=== PATIENT | female | born 2005 | race African-American/Black ===

== ENCOUNTER 2024-06-27 23:18 | Emergency (ER) | payer OTHER ==
[~2024-06-27] VITALS: Ht 157.5 cm; Wt 92.0 kg
--- NOTE | 2024-06-28 00:01 | ED.PDOC ---
ORE CRUSHER HPI Comments 18-year-old female with history of current approximate 20 week brought in by family complaining of vaginal bleeding intermittently for the last 2 days. Patient states 2 days ago she had unprovoked onset of mild vaginal bleeding, going through 2 pads that day, and also passing a small blood clot. She currently states she is having only vaginal spotting. She did have some pelvic discomfort yesterday, but denies any pain now. She denies any fever, nausea, vomiting, abnormal fluid discharge or dysuria. She states she did have an ultrasound about a week ago that showed an intrauterine . Chief Complaint: Vaginal Bleed Time Seen by MD: 23:25 Reviewed Notes: Nurses Notes, Medications, Allergies Allergies: Coded Allergies: NO KNOWN ALLERGIES (Unverified , 06/27/24) Home Meds Active Scripts Cephalexin Monohydrate (Cephalexin) 500 Mg Cap, 1 CAP PO QID for 10 Days, #40 CAP Prov:SAMUEL COSTA MD 06/28/24 Information Source: Patient Past Medical History PAST MEDICAL HISTORY: Anemia, Asthma Surgical History: Denies all surgeries 2 Para 1 AB 0 Family History Family History: Reviewed,noncontributory to illness Social History Smoker: Non-Smoker Alcohol: Denies ETOH Use Drugs: Denies Drug Use Lives In: Home All Other Systems: Reviewed and Negative (Comprehensive systems review obtained and negative except for what is stated in the HPI.) Physical Exam General Appearance: No Apparent Distress, Obese HEENT: Normal ENT Inspection Neck: Full Range of Motion, Normal Inspection Respiratory: Lungs Clear, No Accessory Muscle Use, No Respiratory Distress, Normal Breath Sounds Cardiovascular: No Edema, No JVD, Regular Rate/Rhythm Breast Exam: Deferred Gastrointestinal: Non Tender, Soft Genitalia: Deferred Pelvic: Deferred Rectal: Deferred Extremities: Normal inspection, Normal range of motion, Non-tender, No pedal edema Neurologic: Alert, No Motor Deficits, Normal Affect, Normal Mood, No Sensory Deficits Cerebellar Function: NOT DONE Reflexes: NOT DONE Skin: Dry, Normal Color, Warm Lymphatic: NOT DONE Was a procedure done? Was a procedure done?: No Differential Diagnosis ([employer]) Vaginal Bleeding: - Incomplete, - Inevitable, - Missed, Abruptio Placentae, Blood Loss Anemia, Myomatous Uterus, Placenta Previa, UTI X-Ray, Labs, Meds, VS Vital Signs Date Time Temp Pulse Resp B/P (MAP) Pulse Ox O2 Delivery O2 Flow Rate FiO2 06/27/24 23:27 98.8 85 16 122/43 (69) 98 Lab Test 06/27/24 23:59 06/27/24 23:42 Range/Units White Blood Count 6.3 4.4-10.8 10^3/uL Red Blood Count 3.83 L 4.0-5.20 10^6/uL Hemoglobin 9.7 L 12.2-16.2 g/dL Hematocrit 29.6 L 36.0-46.0 % Mean Corpuscular Volume 77.5 L 80.0-100.0 fL Mean Corpuscular Hemoglobin 25.4 L 28.0-32.0 pg Mean Corpuscular Hemoglobin Concent 32.8 32.0-36.0 g/dL Red Cell Distribution Width 14.7 H 11.8-14.3 % Platelet Count 303 140-450 10^3/uL Mean Platelet Volume 7.1 6.9-10.8 fL Neutrophils (%) (Auto) 50.3 37.0-80.0 % Lymphocytes (%) (Auto) 34.4 10.0-50.0 % Monocytes (%) (Auto) 9.1 0.0-12.0 % Eosinophils (%) (Auto) 5.8 0.0-7.0 % Basophils (%) (Auto) 0.4 0.0-2.0 % Neutrophils # (Auto) 3.2 1.6-8.6 10 ^3/uL Lymphocytes # (Auto) 2.2 0.4-5.4 10 ^3/uL Monocytes # (Auto) 0.6 0-1.3 10 ^3/uL Eosinophils # (Auto) 0.4 0-0.8 10 ^3/uL Basophils # (Auto) 0 0-0.2 10 ^3/uL Nucleated Red Blood Cells 0.0 % Prothrombin Time 10.5 9.3-11.8 sec Prothrombin Time INR 0.99 0.9-1.15 Activated Partial Thromboplast Time 23.7 L 24.5-34.5 SEC Sodium Level 138 136-145 mmol/L Potassium Level 4.3 3.5-5.1 mmol/L Chloride Level 107 98-107 mmol/L Carbon Dioxide Level 24 20-31 mmol/L Anion Gap 7 5-15 Blood Urea Nitrogen 6 L 9-23 mg/dL Creatinine 0.66 0.550-1.02 mg/dL Glomerular Filtration Rate Calc 129 >90 mL/min BUN/Creatinine Ratio 9.1 L 10.0-20.0 Serum Glucose 88 74-106 mg/dL Calcium Level 9.2 8.7-10.4 mg/dL Beta HCG, Quantitative 77546.7 H 1.5-4.2 mIU/mL Urine Color Yellow Yellow Urine Clarity Turbid H Clear Urine pH 7.0 5.0-9.0 Urine Specific [place] 1.026 1.001-1.035 Urine Protein Trace H Negative Urine Ketones Negative Negative Urine Blood Negative Negative /uL Urine Nitrite Negative Negative Urine Bilirubin Negative Negative Urine Urobilinogen 2 H Negative mg/dL Urine Leukocyte Esterase 1+ Negative /uL Urine RBC 3 0 - 4 /hpf Urine WBC 10 0 - 5 /hpf Urine Squamous Epithelial Cells Mod <5 /hpf Urine Bacteria Few H None Seen /hpf Urine Mucus Few None Seen Urine Glucose Normal Normal mg/dL [place] [address] Ph: [phone] DIAGNOSTIC IMAGING Diagnostic Imaging Report : [id number] Signed PATIENT: CASIE ROSE RACCT: [id number] UNIT: [id number] : 2005 LOC: ER ROOM / BED: / AGE / SEX: 18 / F ADM STATUS: REG ER SERVICE 2330 ORDERING PHYSICIAN: SAMUEL COSTA MD PROCEDURE(s): OBUS - OB ULTRASOUND COMP GTR 14 WKS REASON: vag bleed ORDER NUMBER(s): [id number], ACCESSION NUMBER(s): [id number] LIMITED OB ULTRASOUND > 14 WKS: HISTORY: vag bleed TECHNIQUE: Multiple real-time grayscale images of the gravid uterus with duplex Doppler color flow and M-mode spectral analysis. FINDINGS: IUP single live fetus at 20 weeks 3 days based on composite averages of the BPD, head circumference, abdominal circumference and femur length Estimated weight 338 grams heart rate 166 beats per minute VANESSA is adequate. presentation is breech. Placenta is posterior. Cervix measures 5 cm and appears closed. IMPRESSION: IUP single live fetus at 20 weeks 3 days AUA corresponding to an ROSALEE of November 10, 2024 ATED BY: TOPHER RODRIGUEZ DO DICTATED DATE/TIME: 06/28/24 0131 X-Ray, Labs, Meds, VS Comment 18-year-old female with current approximate 20 week complaining of vaginal bleeding Vitals remarkable for BP 122/43 Exam unremarkable Rhythm strip independently interpreted by me: Sinus rhythm, rate 85, no ectopy. Ob ultrasound unremarkable CBC remarkable for hemoglobin 9.7, hematocrit 29.6, basic metabolic panel unremarkable for any abnormality of acute significance, coagulation panel remarkable for PTT 23.7, serum quantitative hCG 98171.7 UA abnormal showing protein, leukocyte esterase, 10 WBCs and few bacteria Patient treated with the following in the ED: Rocephin 1 g IM On re-evaluation, patient denied any heavy vaginal bleeding, denied any abdominal /pelvic pain, and abdominal exam was benign. Vitals were unremarkable. Patient was advised regarding workup findings, my impression, treatment plan and follow-up recommendations. She expressed understanding and agreed. Patient appears stable for outpatient follow-up with her OBGYN Rx Keflex Time of 1ST Reevaluation: 01:03 Reevaluation 1ST: Unchanged Patient Education/Counseling: Diagnosis, Treatment, Need For Follow Up Family Education/Counseling: No Family Present Departure 1 Departure Time of Disposition: 01:38 Impression: Primary Impression: Vaginal bleeding during Additional Impression: UTI (urinary tract infection) Qualified Codes: N39.0 - Urinary tract infection, site not specified Disposition: HOME / SELF CARE / HOMELESS Condition: Stable Additional Instructions: Your ultrasound results are normal and are below. Your lab tests showed mild anemia which does not require any acute treatment at this time. Continue taking your iron supplements as directed. Your urine test showed a urinary tract infection. I have prescribed antibiotics. Follow-up with your OBGYN in 1-2 days. Return to ER for persistent or worsening symptoms. [place] [address] Ph: [phone] DIAGNOSTIC IMAGING Diagnostic Imaging Report : [id number] Signed PATIENT: CASIE ROSE ACCT: [id number] UNIT: [id number] : 2005 LOC: ER ROOM / BED: / AGE / SEX: 18 / F ADM STATUS: REG ER SERVICE 2330 ORDERING PHYSICIAN: SAMUEL COSTA MD PROCEDURE(s): OBUS - OB ULTRASOUND COMP GTR 14 WKS REASON: vag bleed ORDER NUMBER(s): [id number], ACCESSION NUMBER(s): [id number] LIMITED OB ULTRASOUND > 14 WKS: HISTORY: vag bleed TECHNIQUE: Multiple real-time grayscale images of the gravid uterus with duplex Doppler color flow and M-mode spectral analysis. FINDINGS: IUP single live fetus at 20 weeks 3 days based on composite averages of the BPD, head circumference, abdominal circumference and femur length Estimated weight 338 grams heart rate 166 beats per minute VANESSA is adequate. presentation is breech. Placenta is posterior. Cervix measures 5 cm and appears closed. IMPRESSION: IUP single live fetus at 20 weeks 3 days AUA corresponding to an ROSALEE of November 10, 2024 ATED BY: TOPHER RODRIGUEZ DO DICTATED DATE/TIME: 06/28/24 0131 e-Prescriptions Cephalexin Monohydrate (Cephalexin) 500 Mg Cap 1 CAP PO QID for 10 Days, #40 CAP Prov: SAMUEL COSTA MD 06/28/24 Discharged With: Self Critical Care Note Critical Care Time?: No Stability Stability form required: No Heart Score Heart Score: Heart Score Response (Comments) Value History N/A 0 EKG N/A 0 Age N/A 0 Risk Factors N/A 0 Troponin N/A 0 Total 0 SAMUEL COSTA MD Jun 28, 2024 00:01
[2024-06-28 00:11] LABS: Urine Bacteria FEW /hpf (None Seen); Urine Blood Negative /uL (Negative); Urine Clarity Turbid (Clear); Urine Color Yellow (Yellow); Urine Mucus FEW (None Seen); Urine Protein, UAD TRACE (Negative); Urine Specific Gravity 1.026 (1.001-1.035); Urine Urobilinogen 2 mg/dL (Negative); Urine WBC 10 /hpf (0 - 5)
[2024-06-28 00:16] LABS: Basophils # (auto) 0 10 ^3/uL (0-0.2); Basophils % (auto) 0.4 % (0.0-2.0); Eosinophils # (auto) 0.4 10 ^3/uL (0-0.8); Eosinophils % (auto) 5.8 % (0.0-7.0); Hematocrit 29.6 % (36.0-46.0); Hemoglobin 9.7 g/dL (12.2-16.2); Lymphocytes # (auto) 2.2 10 ^3/uL (0.4-5.4); Lymphocytes % (auto) 34.4 % (10.0-50.0); Mean Corpuscular Hemoglobin 25.4 pg (28.0-32.0); Mean Corpuscular Hgb Conc. 32.8 g/dL (32.0-36.0); Mean Corpuscular Volume 77.5 fL (80.0-100.0); Monocytes # (auto) 0.6 10 ^3/uL (0-1.3); Monocytes % (auto) 9.1 % (0.0-12.0); Neutrophils # (auto) 3.2 10 ^3/uL (1.6-8.6); Neutrophils % (auto) 50.3 % (37.0-80.0); Platelet Count (auto) 303 10^3/uL (140-450); Red Blood Cells 3.83 10^6/uL (4.0-5.20); Red Cell Distribution Width 14.7 % (11.8-14.3); White Blood Cell 6.3 10^3/uL (4.4-10.8)
[2024-06-28 00:26] LABS: Chloride 107 mmol/L (98-107); Potassium 4.3 mmol/L (3.5-5.1); Sodium 138 mmol/L (136-145)
[2024-06-28 00:27] LABS: Anion Gap 7 (5-15); Calcium 9.2 mg/dL (8.7-10.4); Carbon Dioxide 24 mmol/L (20-31)
[2024-06-28 00:32] LABS: BUN/Creatinine Ratio 9.1 (10.0-20.0); Blood Urea Nitrogen 6 mg/dL (9-23); Glucose 88 mg/dL (74-106)
[2024-06-28 00:34] LABS: INR 0.99 (0.9-1.15); Partial Thromboplastin Time 23.7 SEC (24.5-34.5); Prothrombin Time 10.5 sec (9.3-11.8)
[2024-06-28] MEDS ORDERED: CEPH500C PO (01:06)
--- NOTE | 2024-06-28 01:34 | DVH ---
LIMITED OB ULTRASOUND > 14 WKS: HISTORY: vag bleed TECHNIQUE: Multiple real-time grayscale images of the gravid uterus with duplex Doppler color flow an d M-mode spectral analysis. FINDINGS: IUP single live fetus at 20 weeks 3 days based on composite averages of the BPD, head circumference, abdominal circumference and femur length Estimated weight 338 grams heart rate 166 beats per minute VANESSA is adequate. presentation is breech. Placenta is posterior. Cervix measures 5 cm and appea rs closed. IMPRESSION: IUP single live fetus at 20 weeks 3 days AUA corresponding to an ROSALEE of November 10, 2024
[2024-06-28] MEDS: cefTRIAXone SOD 1,000 MG VL ONE (02:06)
[2024-06-28] MEDS: LIDOCAINE 2%HCL (LOCAL ANESTH.) INJ 10ml MDV ONE (02:07)
[2024-06-28] MEDS: cefTRIAXone W LIDOCAINE 1 GM IM IM ONE (02:10)
[2024-06-28 02:15] VITALS: BP 108/65; PULSE 71; RESP 16; TEMP 98.4; O2SAT 100
== END 2024-06-28 02:17 | disposition home or self-care (01) ==
LOC: ER 23:18
DX: O23.42 Unspecified infection of urinary tract in pregnancy, second trimester (principal); R10.2 Pelvic and perineal pain; O99.512 Diseases of the respiratory system complicating pregnancy, second trimester; O20.9 Hemorrhage in early pregnancy, unspecified; J45.909 Unspecified asthma, uncomplicated; N39.0 Urinary tract infection, site not specified; Z3A.20 20 weeks gestation of pregnancy
CPT/HCPCS: 36415; 76805; 80048; 81001; 84702; 85025; 85610; 85730; 96372; 99285; J0696; J2003